=== PATIENT | male | born 1960 | race Caucasian/White ===

== ENCOUNTER 2018-08-06 16:51 | Observation (INO) | payer OTHER, SELFPAY ==
[2018-08-06 16:52] VITALS: BP 160/100; PULSE 64; RESP 16; TEMP 36.8; O2SAT 100; BMI 28.4
--- NOTE | 2018-08-06 17:06 | ED.VISSUMM ---
- ER Visit Summary Date of Service: 08/06/18 Chief Complaint: Bright red rectal bleeding History of Present Illness: The patient is a 58 M history of prior A. fib reportedly one episode 10 years ago which he was cardioverted and has not had it since. Since that time is been on Xarelto. He also has a history of hypertension and insulin-dependent diabetes. Patient is from [facility] he is retired up now in the [place] area and has no primary care physician. He states he has intermittent rectal bleeding from time to time. His last colonoscopy was 10 years ago. States today he had much heavier bleeding. He did take his Xarelto this morning. He denies any hematemesis. He is never had a significant GI bleed before in the past. Physical Examination: Older male no acute distress. Vital signs are stable. Afebrile. Initial blood pressure is 160/100. H EENT exam is unremarkable. Moist neck nontender. No lymphadenopathy. Lungs clear to auscultation bilaterally. Heart regular rhythm rate about 65 no murmur. Abdomen is soft and nontender. Normal bowel sounds no peritoneal signs. He has bright red blood coming from his rectum. On rectal exam I do not feel any obvious mass. I do not see any obvious external hemorrhoids. Extremities he is moving all 4. Nontender. No edema. Neurologically is awake and alert with no focal motor deficits. Test Results: CBC shows a white count of 10. Hemoglobin 12.6. Which is a mild anemia but he has no old labs available for comparison. His chemistries are unremarkable with a normal creatinine and gap. His INR is 2.4. He has been typed and screened. Currently he does not need to be transfused. Emergency Department Course and Treatment: Labs and type and screen. Repeat exam the patient is doing well at 1950 3 PM. He is resting comfortably. He and I discussed treatment options. He is willing to stay in the hospital to be admitted for further evaluation of lower GI bleed of uncertain etiology. Treatment Plan: Hospitalist on page for admission. Disposition: Admission Impression: Acute lower GI bleeding of uncertain etiology Mild anemia Anticoagulated on Xarelto History of prior A. fib This note was generated with Mojiva dictation software. It may contain incorrect words, spelling, and punctuation that were not noted in review of the chart prior to signing ED Disposition - Plan for ED Patient: Referrals: NOT,DEFINED [NON-STAFF] -
--- NOTE | 2018-08-06 17:09 | ED.DCSUM_ITS ---
- ER Visit Summary Date of Service: 08/06/18 Chief Complaint: Bright red rectal bleeding History of Present Illness: The patient is a 58 M history of prior A. fib reportedly one episode 10 years ago which he was cardioverted and has not had it since. Since that time is been on Xarelto. He also has a history of hypertension and insulin-dependent diabetes. Patient is from [facility] he is retired up now in the [place] area and has no primary care physician. He states he has intermittent rectal bleeding from time to time. His last colonoscopy was 10 years ago. States today he had much heavier bleeding. He did take his Xarelto this morning. He denies any hematemesis. He is never had a significant GI bleed before in the past. Physical Examination: Older male no acute distress. Vital signs are stable. Afebrile. Initial blood pressure is 160/100. H EENT exam is unremarkable. Moist neck nontender. No lymphadenopathy. Lungs clear to auscultation bilaterally. Heart regular rhythm rate about 65 no murmur. Abdomen is soft and nontender. Normal bowel sounds no peritoneal signs. He has bright red blood coming from his rectum. On rectal exam I do not feel any obvious mass. I do not see any obvious external hemorrhoids. Extremities he is moving all 4. N ontender. No edema. Neurologically is awake and alert with no focal motor deficits. Test Results: CBC shows a white count of 10. Hemoglobin 12.6. Which is a mild anemia but he has no old labs available for comparison. His chemistries are unremarkable with a normal creatinine and gap. His INR is 2.4. He has been typed and screened. Currently he does not need to be transfused. Emergency Department Course and Treatment: Labs and type and screen. Repeat exam the patient is doing well at 1950 3 PM. He is resting comfortably. He and I discussed treatment options. He is willing to stay in the hospital to be admitted for further evaluation of lower GI bleed of uncertain etiology. Treatment Plan: Hospitalist on page for admission. Disposition: Admission Impression: Acute lower GI bleeding of uncertain etiology Mild anemia Anticoagulated on Xarelto History of prior A. fib This note was generated with FRAMED dictation software. It may contain incorrect words, spelling, and punctuation that were not noted in review of the chart prior to signing ED Disposition - Plan for ED Patient: Referrals: NOT,DEFINED [NON-STAFF] -
[2018-08-06 17:24] LABS: Hematocrit 38.1 % (40-54); Hemoglobin 12.6 g/dl (13.0-16.5); Mean Corp Hgb Conc 33.1 g/gl (32-36); Mean Corpuscular Hgb 28.6 pg (27.0-32.0); Mean Corpuscular Volume 86.4 fL (80-94); Mean Platelet Vol. 9.6 fl (6.2-12.0); Platelet Count 234 K/mm3 (150-450); RBC Distribution Width CV 13.4 % (11.6-14.6); RBC Distribution Width SD 42.5 fl (35.1-43.9); Red Blood Count 4.41 M/mm3 (4.6-6.2); Scan Indicated on CBC? Y/N NO; White Blood Count 10.7 K/mm3 (4.4-11.0)
[2018-08-06 17:31] LABS: International Normalized Ratio 2.4
[2018-08-06 17:32] LABS: Partial Thromboplast Time 35.5 Seconds (24.1-36.2)
[2018-08-06 17:43] LABS: Anion Gap 6 (5-15); BUN 18 mg/dL (7-18); BUN/Creat Ratio 23.3 RATIO (10-20); Calcium,Total 8.6 mg/dL (8.5-10.1); Chloride 106 mmol/L (98-107); Creatinine, Serum 0.77 mg/dL (0.70-1.30); EST Glomerular Filtration Rate 109 mL/min (>60); Est Glom Filt Rate - Afr Amer 132 mL/min (>60); Estimated Creatinine Clearance 121.93 ml/min; Glucose 129 mg/dL (74-106); Potassium 3.9 mmol/L (3.5-5.1); Sodium Level 140 mmol/L (136-145)
[2018-08-06 19:28] VITALS: BP 154/100; PULSE 55; RESP 16; O2SAT 98
--- NOTE | 2018-08-06 19:56 | PCM.HP.STD ---
Problem List (1) Acute blood loss anemia Status: Suspected (2) HTN (hypertension) Status: Chronic (3) Diabetes Status: Chronic History of Present Illness Date of Admission: 08/06/18 Chief Complaint: bright red blood per rectum The patient is a 58 year old M with a significant history of A. fib; hypertension and diabetes who presented because bright red blood per rectum that started on the same day of admission. Patient reported that for the last month he been having intermittent small blood per rectum. However today he had a profuse red blood per rectum that continued for about 30 minutes as well and his jeans and a causing him to go home from work. He reported that he ran out of his Xarelto for about 2 days and restarted his Xarelto on the same day that he bled profusely. His last colonoscopy was about 10 years ago. Emergency department doctor discussed the case with on-call general surgeon for [facility] services. Past Medical History Past Medical History (Chronic Problems): Chronic Problems HTN (hypertension) (Chronic) Diabetes (Chronic) Allergies No Known Allergies Allergy (Verified 08/06/18 16:52) Home Medications: Ambulatory Orders Medication Instructions Recorded Amlodipine [Norvasc] 5 mg PO DAILY 08/06/18 Carvedilol Phosphate [Carvedilol 40 mg PO DAILY 08/06/18 ER] Digoxin 500 mcg PO DINNER 08/06/18 Insulin Degludec [Tresiba 10 unit SQ QHS 08/06/18 Flextouch U-100] Insulin Degludec [Tresiba 20 unit SQ BREAKFAST 08/06/18 Flextouch U-100] Metformin HCl 500 mg PO BID 08/06/18 Metoprolol Succinate [Kapspargo 50 mg PO BID 08/06/18 Sprinkle] Rivaroxaban [Xarelto] 20 mg PO DAILY 08/06/18 Rosuvastatin Calcium [Crestor] 20 mg PO DAILY 08/06/18 Telmisartan/Hydrochlorothiazid 1 each PO DAILY 08/06/18 [Telmisartan-Hctz 80-12.5 mg Tb] Surgical History: no surgical history Lives: With Family Smoking Status: Never smoker Tobacco Use: Non-smoker Alcohol: None - *Family History Maternal Family History: Family History (Last Updated 08/06/18 @ 20:44 by Kai Arrieta MD) Brother Kidney disease Mother Kidney disease Review of Systems Constitutional: Denies: Chills, Fever, Weight Change HEENT: Denies: Head Aches, Sinus Congestion, Sinus Drainage Cardiovascular: Denies: Chest Pain, Palpitations Respiratory: Denies: Cough, Shortness of breath at rest, Sputum production Gastrointestinal: Reports: Diarrhea, Hematochezia. Denies: Abdominal Pain, Nausea, Vomiting Genitourinary: Denies: Dysuria Musculoskeletal: Denies: Joint Pain, Joint Tenderness Skin: Denies: Rash, Wounds Neurological: Denies: Numbness, Tingling, Focal weakness Psychiatric: Denies: Anxiety, Depression, Homicidal Ideations, Suicidal Ideations Hematologic/ Lymphatic: Denies: Easy Bruising, Easy Bleeding VTE Information - Inpt Only VTE Present on Admission: No VTE Mechan Device Prophylaxis: SCD's VTE Pharm Prophylaxis ordered?: No Patient Problems: Active and Suspected Problems Acute blood loss anemia (Suspected) - Physical Exam General: Alert, Oriented x3, Cooperative HEENT: Atraumatic, PERRLA, EOMI, Normocephalic Neck: Supple, No JVD, Negative Carotid Bruits Lungs: Clear to auscultation, Normal air movement Cardiovascular: No murmurs, Bradycardic Abdomen: Bowel Sounds Present, Soft, Non Tender, - - Rectal exam shows no external or internal hemorrhoids. No masses were palpated. Bright red blood was noted. Patient was tender on examination Extremities: No edema, Capillary Refill Less than 3 Seconds Skin: No rashes, No breakdown Musculoskeletal: No Tenderness to Palpation of Joints or Extremities Neurological: Neuro grossly intact Psych/Mental Status: Normal Affect, Appropriate Vital Signs Temp Pulse Resp BP Pulse Ox 98.3 F 55 L 16 154/100 H 98 08/06/18 16:52 08/06/18 19:28 08/06/18 19:28 08/06/18 19:28 08/06/18 19:28 Oxygen Delivery Method Room Air Weight: 103.238 kg Body Mass Index (BMI) 28.4 Laboratory Tests Past 24 Hrs 08/06/18 08/06/18 08/06/18 17:13 17:13 17:13 WBC 10.7 RBC 4.41 L Hgb 12.6 L Hct 38.1 L MCV 86.4 MCH 28.6 MCHC 33.1 RDW 13.4 RDW Differential 42.5 Plt Count 234 MPV 9.6 PT 26.0 H INR 2.4 APTT 35.5 Sodium 140 Potassium 3.9 Chloride 106 Carbon Dioxide 28.0 Anion Gap 6 BUN 18 Creatinine 0.77 Estim Creat Clear Calc 121.93 Est GFR (MDRD) Af Amer 132 Est GFR (MDRD) Non-Af 109 BUN/Creatinine Ratio 23.3 H Glucose 129 H Calcium 8.6 Blood Type Antibody Screen 08/06/18 17:13 WBC RBC Hgb Hct MCV MCH MCHC RDW RDW Differential Plt Count MPV PT INR APTT Sodium Potassium Chloride Carbon Dioxide Anion Gap BUN Creatinine Estim Creat Clear Calc Est GFR (MDRD) Af Amer Est GFR (MDRD) Non-Af BUN/Creatinine Ratio Glucose Calcium Blood Type O NEGATIVE Antibody Screen NEGATIVE Assessment/Plan The patient is a 58 year old M with a significant history of A. fib; hypertension and diabetes who had his last colonoscopy about 10 years ago and on Xarelto for A. fib presenting with bright red blood per rectum and with hemoglobin was 12.6. Probable acute blood loss anemia On admission his hemoglobin was 12.6. No old records to compare with. Bright red blood per history and by physical examination Will check H&H every [address] on normal saline infusion at 100 MLS per hour. Hold home blood pressure. Put on prn hydralazine. Trend blood pressure. Would hold Xarelto. N.p.o. at this time. General surgery consult. Hypertension On admission his blood pressure was not within goal. Also noted the patient has bradycardia with heart rate between 55-60 Hold home blood pressure meds for GI bleed. Prn hydralazine ordered. A. fib Reportedly patient had one-time episode of A. fib many years ago and was cardioverted back to reading. We will continue digoxin We will hold carvedilol and metoprolol. Of note patient is on both metoprolol and carvedilol. He reported that his vocational adviser Dr. Hathaway ([phone]) in [facility] place him on these medications. We will hold Xarelto at this time. Patient declines telemetry monitoring saying that the telemetry sticky pads irritate his skin and he will sign out AMA if he is placed on telemetry on the floor. Diabetes Mellitus On presentation blood glucose was within goal. We will hold home metformin and schedule insulin while n.p.o. Will place on correction scale insulin. Acute diarrhea He reports loose stools for the past 1 months. This could be due to traveler's diarrhea from moving to [place] from here. We will check O and P; and enteric pathogen panel. DVT prophylaxis Would hold Xarelto for A. fib. No chemo prophylaxis because of bleeding SCD ordered. Code Visit OBSV E&M: 71712 Initial observation care L3
[2018-08-06 20:27] VITALS: BP 160/99; PULSE 53; RESP 16; O2SAT 98
[2018-08-06 20:54] VITALS: BMI 27.0; BMI 27.3
[2018-08-06 20:55] VITALS: BP 152/98; PULSE 54; RESP 16; TEMP 37; O2SAT 100
[2018-08-06 21:12] VITALS: O2SAT 98
[2018-08-06 22:01] LABS: Bedside Glucose 105 mg/dL (70-110)
[2018-08-06 22:03] LABS: Hematocrit 36.6 % (40-54); Hemoglobin 12.1 g/dl (13.0-16.5)
--- NOTE | 2018-08-06 22:15 | NURSING ---
When this RN walked into patients room to introduce self and explain POC and do assessment, patient was found in the bathroom finishing up from his shower. Patient was tearful and expressed frustration about still bleeding. Patient embarrassed. This RN gave reassurance and offered assistance. Patient was okay with wearing attends with his underwear overtop to help with the bleeding. Bright red blood present yet no clots. This RN discussed with patient the orders that were placed by the MD. This RN explained to the patient that he was going to be getting a blood draw every 6 hours to check his Hgb, his medication list, IVF that were ordered, NPO status, and a consult was placed for the General Surgeon. The patient asked this RN if he needed the IVF. This RN explained to the patient that he had to right to refuse but also explained that he was to be nothing by mouth at this time and this was going to help with hydration, at this time patient did not want the IVF. Patient also refused his HS lipitor. When this RN went to check the patient blood sugar, patient expressed that he never checks his blood sugar at home, he just takes his insulin and metformin. This RN explained to patient that a stool sample was needed, and when he was able to go to let the staff know. Also went over the reason why the staff were wearing gowns. Will continue patient education and support as needed.
[2018-08-07] MEDS: 0.9% NaCl Peripheral Flush Adult/Peds IV (00:28)
[2018-08-07] MEDS: 0.9% Normal Saline 1,000 ML 100 ML IV ×2 (00:28→10:51)
[2018-08-07 03:21] VITALS: BP 129/87; PULSE 63; RESP 16; TEMP 36.8; O2SAT 96
[2018-08-07 03:36] LABS: Hematocrit 34.7 % (40-54); Hemoglobin 11.6 g/dl (13.0-16.5)
[2018-08-07 06:26] LABS: Bedside Glucose 89 mg/dL (70-110)
[2018-08-07 07:08] VITALS: O2SAT 98
--- NOTE | 2018-08-07 08:09 | PCM.CONS.GEN ---
Problem List (1) Acute blood loss anemia Status: Suspected (2) Bright red blood per rectum Status: Acute Reason for Consult Date of Consultation: 08/07/18 Reason for Consultation: Bright red blood per rectum. Lower GI bleed. History of Present Illness: The patient is a 58 year old M who presents with progressively worsening bright red blood per rectum for 4-5 months. Patient stated for approximately 1 month the bleeding has progressively increased in amount. Patient stated when he had a bowel movement yesterday it was all bright red blood with no stool. He denies hemorrhoids that he is aware of. He denies nausea, vomiting, constipation, abdominal pain. He notes having diarrhea the last few months. He denies fever. He denies travel outside of the country or eating raw foods lately. Patient states his last colonoscopy was approximately 10 years ago. He denies family history of colon cancer. He is on Xarelto for A fib. He noted running out of Xarelto for 2 days and restarted the Xarelto yesterday. 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 He is in [place] to visit family and possibly move here. Patient notes he has been in [place] for 2 months. Patient did see a event sales representative in [place], Dr. Fay. Patient is also a diabetic. He has never had any surgeries previously. He denies previous myocardial infarction, stroke and blood clots. Past Medical History Past Medical History (Chronic Problems): Chronic Problems HTN (hypertension) (Chronic) Diabetes (Chronic) Allergies No Known Allergies Allergy (Verified 08/06/18 16:52) Home Medications: Ambulatory Orders Medication Instructions Recorded Amlodipine [Norvasc] 5 mg PO DAILY 08/06/18 Carvedilol Phosphate [Carvedilol 40 mg PO DAILY 08/06/18 ER] Digoxin 500 mcg PO DINNER 08/06/18 Insulin Degludec [Tresiba 10 unit SQ QHS 08/06/18 Flextouch U-100] Insulin Degludec [Tresiba 20 unit SQ BREAKFAST 08/06/18 Flextouch U-100] Metformin HCl 500 mg PO BID 08/06/18 Metoprolol Succinate [Kapspargo 50 mg PO BID 08/06/18 Sprinkle] Rivaroxaban [Xarelto] 20 mg PO DAILY 08/06/18 Rosuvastatin Calcium [Crestor] 20 mg PO DAILY 08/06/18 Telmisartan/Hydrochlorothiazid 1 each PO DAILY 08/06/18 [Telmisartan-Hctz 80-12.5 mg Tb] Surgical History: no surgical history Lives: With Family Smoking Status: Never smoker Tobacco Use: Non-smoker Alcohol: None - *Family History Maternal Family History: Family History (Last Reviewed 08/07/18 @ 09:26 by Doreen Rodriguez PA-C) Brother Kidney disease Mother Kidney disease Paternal Family History: Family History (Last Reviewed 08/07/18 @ 09:26 by Doreen Rodriguez PA-C) Brother Kidney disease Mother Kidney disease Review of Systems Constitutional: Denies: Chills, Fever, Weight Change HEENT: Denies: Head Aches, Sinus Congestion, Sinus Drainage Cardiovascular: Denies: Chest Pain, Palpitations Respiratory: Denies: Cough, Shortness of breath at rest, Sputum production Gastrointestinal: Reports: Diarrhea, Hematochezia. Denies: Abdominal Pain, Nausea, Vomiting Genitourinary: Denies: Dysuria Musculoskeletal: Denies: Joint Pain, Joint Tenderness Skin: Denies: Rash, Wounds Neurological: Denies: Numbness, Tingling, Focal weakness Psychiatric: Denies: Anxiety, Depression, Homicidal Ideations, Suicidal Ideations Hematologic/ Lymphatic: Reports: Anemia. Denies: Hx of blood clot, Hx of blood transfusion Patient Problems: Active and Suspected Problems Acute blood loss anemia (Suspected) Bright red blood per rectum (Acute) - Physical Exam General: Alert, Oriented x3, Cooperative HEENT: Atraumatic, PERRLA, EOMI, Normocephalic Neck: Supple, No JVD, Negative Carotid Bruits Lungs: Clear to auscultation, Normal air movement Cardiovascular: Regular rate, No murmurs Abdomen: Bowel Sounds Present, Soft, Non Tender, Non-Distended Extremities: No edema, Capillary Refill Less than 3 Seconds Skin: No rashes, No breakdown Musculoskeletal: No Tenderness to Palpation of Joints or Extremities Neurological: Cranial nerves II-XII grossly intact Psych/Mental Status: Normal Affect, Appropriate Vital Signs Temp Pulse Resp BP Pulse Ox 98.2 F 63 16 129/87 H 96 08/07/18 03:21 08/07/18 03:21 08/07/18 03:21 08/07/18 03:21 08/07/18 03:21 Oxygen Delivery Method Room Air Weight: 218 lb 4.122 oz Body Mass Index (BMI) 27.3 Intake and Output for Last 24 Hours 08/05/18 08/06/18 08/07/18 23:59 23:59 23:59 Intake Total 587 / 587 Balance 587 / 587 Laboratory Tests Past 24 Hrs 08/06/18 08/06/18 08/06/18 17:13 17:13 17:13 WBC 10.7 RBC 4.41 L Hgb 12.6 L Hct 38.1 L MCV 86.4 MCH 28.6 MCHC 33.1 RDW 13.4 RDW Differential 42.5 Plt Count 234 MPV 9.6 PT 26.0 H INR 2.4 APTT 35.5 Sodium 140 Potassium 3.9 Chloride 106 Carbon Dioxide 28.0 Anion Gap 6 BUN 18 Creatinine 0.77 Estim Creat Clear Calc 121.93 Est GFR (MDRD) Af Amer 132 Est GFR (MDRD) Non-Af 109 BUN/Creatinine Ratio 23.3 H Glucose 129 H Calcium 8.6 Blood Type Antibody Screen 08/06/18 08/06/18 08/07/18 17:13 21:50 03:14 WBC RBC Hgb 12.1 L 11.6 L Hct 36.6 L 34.7 L MCV MCH MCHC RDW RDW Differential Plt Count MPV PT INR APTT Sodium Potassium Chloride Carbon Dioxide Anion Gap BUN Creatinine Estim Creat Clear Calc Est GFR (MDRD) Af Amer Est GFR (MDRD) Non-Af BUN/Creatinine Ratio Glucose Calcium Blood Type O NEGATIVE Antibody Screen NEGATIVE POC Glucose 08/07/18 08/06/18 06:20 21:51 POC Glucose 89 105 Assessment/Plan All Active Problems Bright red blood per rectum (Acute) I have been consulted in conjunction with Dr. Wayne. Impression: Bright red blood per rectum possible diverticulum versus internal hemorrhoids versus malignancy. Lower GI bleed Plan: I have discussed this patient with Dr. Wayne. Dr. Wayne will plan to perform a colonoscopy with possible biopsies. Procedure details, risks and benefits have been explained to the patient. Patient has had the opportunity to ask and have questions answered. Patient verbally understands and agrees with the plan. We will have patient on clears. NPO after midnight. Janna bowel prep. Colonoscopy scheduled at 10:45 AM tomorrow. Thank you for allowing us to participate in this patient's care. Code Visit Office Visits / Consults: [id number] IP Consult L3
[2018-08-07 09:18] LABS: Hematocrit 36.1 % (40-54); Hemoglobin 11.9 g/dl (13.0-16.5)
[2018-08-07 09:21] VITALS: BP 139/91; PULSE 61; RESP 16; TEMP 37.2; O2SAT 99
[2018-08-07] MEDS: amLODIPine 5 MG Tablet PO (10:53)
[2018-08-07 12:16] LABS: Bedside Glucose 118 mg/dL (70-110)
[2018-08-07 15:02] LABS: Hematocrit 38.3 % (40-54); Hemoglobin 12.5 g/dl (13.0-16.5)
[2018-08-07] MEDS: Electrolyte Solution/Peg's 4000 ML PO (15:13)
[2018-08-07 15:21] VITALS: BP 140/91; PULSE 79; RESP 16; TEMP 37.2; O2SAT 98
[2018-08-07] MEDS: Digoxin 250 MCG Tablet 500 MCG PO (17:17)
[2018-08-07 17:21] LABS: Bedside Glucose 88 mg/dL (70-110)
--- NOTE | 2018-08-07 19:28 | PN_ITS ---
Patient Problems: Active and Suspected Problems Acute blood loss anemia (Suspected) Bright red blood per rectum (Acute) Subjective: Patient was seen and examined today, he will undergo colonoscopy tomorrow morning. Patient's hemoglobin dropped initially from his admission hemoglobin by about a gram, last hemoglobin was virtually identical to his hemoglobin at the time of admission. Patient states that he has only seen a small amount of blood in his stool today, he denies seeing any clots. Patient has no abdominal pain. - Physical Exam General: Alert, Oriented x3, Cooperative, No apparent distress HEENT: Atraumatic, PERRLA, EOMI, Normocephalic Oral: Moist Mucosa Neck: Supple, Trachea Midline, Thyroid Normal Size and Texture Lungs: Clear to auscultation, Normal air movement, No rhonchi, No wheeze, No rales Cardiovascular: Regular rate, Regular Rhythm, Normal S1, Normal S2, No murmurs, No Ectopic Activity, PMI Normal, No rub noted, No Gallop Abdomen: Bowel Sounds Present, Soft, Non Tender, Non-Distended, No hernias noted Extremities: No clubbing, No cyanosis, No edema, Capillary Refill Less than 3 Se conds Skin: No rashes, No breakdown Musculoskeletal: No Tenderness to Palpation of Joints or Extremities Neurological: Cranial nerves II-XII grossly intact, Neuro grossly intact, Sensory exam intact to light touch and pain, Coordination normal Psych/Mental Status: Normal Affect, Appropriate, Alert and oriented to time, place, person, mood and affect Vital Signs Temp Pulse Resp BP Pulse Ox 98.9 F 79 16 140/91 H 98 08/07/18 15:21 08/07/18 15:21 08/07/18 15:21 08/07/18 15:21 08/07/18 15:21 Oxygen Delivery Method Room Air Weight: 99 kg Body Mass Index (BMI) 27.3 Intake and Output for Last 24 Hours 08/05/18 08/06/18 08/07/18 23:59 23:59 23:59 Intake Total 587 / 587 Balance 587 / 587 Laboratory Tests Past 24 Hrs 08/06/18 08/07/18 08/07/18 21:50 03:14 09:05 Hgb 12.1 L 11.6 L 11.9 L Hct 36.6 L 34.7 L 36.1 L 08/07/18 14:55 Hgb 12.5 L Hct 38.3 L POC Glucose 08/07/18 08/07/18 08/07/18 17:02 12:10 06:20 POC Glucose 88 118 H 89 08/06/18 21:51 POC Glucose 105 Medical Necessity - Tobacco Use Smoking Status: Never smoker Tobacco Use: Non-smoker Assessment/Plan All Active Problems Bright red blood per rectum (Acute) #1 bright red rectal bleeding-patient will undergo colonoscopy tomorrow, suspect that the patient may have had a diverticular bleed, polyps and neoplasm are also a possibility. #2 mild blood loss anemia from rectal bleeding-this does not appear to be significant, I will stop the patient's lab as I do not feel the patient is actively bleeding #3 hypertension #4 type 2 diabetes-patient's Triseba will be held, he will continue on sliding scale insulin. #5 chronic anticoagulation with Xarelto-patient stated that he had an episode of atrial fib and underwent cardioversion many years ago, he states he has been on Xarelto for approximately 10 years. Patient's last dose of Xarelto was yesterday afternoon. Code Visit OBSV E&M: 48679 Subsequent observation care L3
[2018-08-07 21:30] VITALS: BP 145/85; PULSE 61; RESP 16; TEMP 36.7; O2SAT 100
[2018-08-07 23:31] LABS: Bedside Glucose 95 mg/dL (70-110)
[2018-08-08 06:00] VITALS: BP 134/90; PULSE 55; RESP 16; TEMP 36.8; O2SAT 97
--- NOTE | 2018-08-08 06:00 | EKG12_ITS ---
Test Reason : AM EKG Blood Pressure : / mmHG Vent. Rate : 058 BPM Atrial Rate : 058 BPM P-R Int : 150 ms QRS Dur : 082 ms QT Int : 436 ms P-R-T Axes : -15 -25 076 degrees QTc Int : 428 ms Sinus bradycardia Low voltage QRS Septal infarct , age undetermined Abnormal ECG Confirmed by RICARDO JUAREZ, ZUHAIR ([id number]), industrial editor MIKE AJ ([id number]) on 08/14/2018 10:40:12 AM Referred By: Kai Arrieta Confirmed By:ZUHAIR SILVA MD
[2018-08-08 06:16] LABS: Bedside Glucose 91 mg/dL (70-110)
--- NOTE | 2018-08-08 06:16 | NURSING ---
Patient did report to this RN this am some rectal bleeding, stated no clots were present. Not observed this am.
[2018-08-08 07:32] VITALS: O2SAT 96
[2018-08-08 08:06] LABS: Digoxin Level 0.62 ng/mL (0.80-2.00)
[2018-08-08 09:13] VITALS: BP 123/70; BP 134/90; PULSE 76; RESP 16; TEMP 36.9; O2SAT 98
--- NOTE | 2018-08-08 09:15 | OP.ENDO_ITS ---
08/08/2018 No Primary Care Physician Re : Colonoscopy procedure for Brian Read [facility] Care Physician This procedure was performed on July. My impressions and recommendations are as follows: Impressions : - Friable (with contact bleeding) mucosa at the anus. - The examination was otherwise normal on direct and retroflexion views. - No specimens collected. Recommendations : - Return patient to hospital [facility] for observation. - Do not resume blood thinners. - Advance diet as tolerated. - OK for discharge. - Repeat colonoscopy in 10 years for screening purposes. - Continue present medications. My findings are described in the full procedure note, which is enclosed. If I can be of further assistance, please feel free to contact me at Doctor phone number(s): , Work: . Sincerely, Geronimo Wayne MD 08/08/2018 9:14:30 AM This report has been signed electronically.
--- NOTE | 2018-08-08 09:17 | PN_ITS ---
Progress Note I performed a colonoscopy in the patient today. There is no active bleeding or stigmata of bleeding in the colon. The patient did have friable anal canal with possible dysplasia. The patient may be started on a regular diet and discharged home with no anticoagulation. I will have my office schedule an outpatient exam under anesthesia with biopsy of the anal canal. Geronimo Wayne MD Pager: [facility] [address] [place] [address], [address] [place] [address] Office:
[2018-08-08 09:20] VITALS: BP 134/90; BP 97/75; PULSE 63; RESP 16; O2SAT 98
[2018-08-08 09:25] VITALS: BP 115/66; BP 134/90; PULSE 65; RESP 16; O2SAT 97
[2018-08-08 09:41] VITALS: BP 134/90; BP 134/92; PULSE 65; RESP 16; TEMP 36.8; O2SAT 97
--- NOTE | 2018-08-08 11:26 | DCINST_ITS ---
- Discharge Diagnoses Current Active Problems: Current Active and Chronic Problems HTN (hypertension) (Chronic) Diabetes (Chronic) Bright red blood per rectum (Acute) You will use the following diet at home:: Calorie/Carbohydrate Controlled (specify 1200, 1400, etc) - 1800 dharmesh Your food should be the consistency of: Regular Your liquids should be the consistency of: Regular/Thin Discharge Activity: Return to Normal Activity Weight Bearing Status: Full weight bearing Allergies/Adverse Reactions: Allergies No Known Allergies Allergy (Verified 08/06/18 16:52) Medications to take at Discharge Amlodipine [Norvasc] 5 mg PO DAILY 08/06/18 Insulin Degludec [Tresiba Flextouch U-100] 10 unit SQ QHS 08/06/18 Insulin Degludec [Tresiba Flextouch U-100] 20 unit SQ BREAKFAST 08/06/18 Metformin HCl 500 mg PO BID 08/06/18 Rivaroxaban [Xarelto] 20 mg PO DAILY 08/06/18 Rosuvastatin Calcium [Crestor] 20 mg PO DAILY 08/06/18 Telmisartan/Hydrochlorothiazid [Telmisartan-Hctz 80-12.5 mg Tb] 1 each PO DAILY 08/06/18 Digoxin 250 mcg PO DINNER 08/07/18 Carvedilol Phosphate [Carvedilol ER] 80 mg PO DAILY #60 cpmp.24hr 08/08/18 The following prescriptions were given: Carvedilol Phosphate [Carvedilol ER] 80 mg PO DAILY #60 cpmp.24hr Primary Care Physician: NOT,DEFINED [NON-STAFF] - Please follow up with your Primary Care Physician in: in 2-3 weeks Test Results: Test results from this visit will be discussed in further detail at your follow- up appointment, if applicable. Please Follow Up With: Geronimo Wayne MD When: as directed
[2018-08-08 12:16] LABS: Hemoglobin A1c 5.9 % (4.2-6.3)
--- NOTE | 2018-08-11 18:52 | DS.PCM_ITS ---
Discharge Date and Diagnosis Date of Admission: 08/06/18 Date of Discharge: 08/08/18 - Primary Discharge Diagnosis #1 bright red rectal bleeding-secondary to proctitis-etiology unclear #2 mild blood loss anemia from rectal bleeding-this does not appear to be significant #3 hypertension #4 type 2 diabetes #5 chronic anticoagulation with Xarelto - Secondary Discharge Diagnosis Chronic Problems HTN (hypertension) (Chronic) Diabetes (Chronic) Hospital Course and Treatment Operations: None Procedures: Colonoscopy Summary of Care Provided: The patient is a 58 year old M who was seen in the emergency room at [facility] with a chief complaint of bright red rectal bleeding. Evaluation in the emergency room included labs which showed a hemoglobin of 12.6, chemistries were unremarkable, INR was 2.4. Patient was placed and observation status on MedSurg 2 and seen by general surgery. Follow-up labs were obtained and the hemoglobin initially dropped a slight amount but then came back up to his baseline. Patient underwent a colonoscopy which showed friable rectal mucosa, no evidence of any diverticulosis, colitis, polyps, or colon lesions was noted. On 08/08/18, I examined the patient: Physical exam: On examination he appeared in good health and spirits. Vital signs as documented. Skin warm and dry and without overt rashes. Neck without JVD. Lungs clear. Heart exam notable for regular rhythm, normal sounds and absence of murmurs, rubs or gallops. Abdomen unremarkable and without evidence of organomegaly, masses, or abdominal aortic enlargement. Extremities nonedematous. Neuro: Cranial nerves II through XII are grossly intact, no focal motor deficits were noted, sensation to light touch and pinprick intact. Psych: Patient is alert and oriented x3, he does not appear anxious or depressed In talking with the patient, patient was a poor informant, he did not know exactly why he was placed on Xarelto by his physician in [place], patient had moved back to [place] from [place] recently. Recommended a PCP in the area for the patient to follow-up with. Patient will be following up with general surgery as an outpatient per general surgery notes. - Physical Exam Vital Signs Temp Pulse Resp BP Pulse Ox 98.2 F 65 16 134/92 H 97 08/08/18 09:41 08/08/18 09:41 08/08/18 09:41 08/08/18 09:41 08/08/18 09:41 Oxygen Delivery Method Room Air Weight: 99 kg Body Mass Index (BMI) 27.3 Discharge Activity: Return to Normal Activity Weight Bearing Status: Full weight bearing Home Medications: Medications to take at Discharge Amlodipine [Norvasc] 5 mg PO DAILY 08/06/18 Insulin Degludec [Tresiba Flextouch U-100] 10 unit SQ QHS 08/06/18 Insulin Degludec [Tresiba Flextouch U-100] 20 unit SQ BREAKFAST 08/06/18 Metformin HCl 500 mg PO BID 08/06/18 Rivaroxaban [Xarelto] 20 mg PO DAILY 08/06/18 Rosuvastatin Calcium [Crestor] 20 mg PO DAILY 08/06/18 Telmisartan/Hydrochlorothiazid [Telmisartan-Hctz 80-12.5 mg Tb] 1 each PO DAILY 08/06/18 Digoxin 250 mcg PO DINNER 08/07/18 Carvedilol Phosphate [Carvedilol ER] 80 mg PO DAILY #60 cpmp.24hr 08/08/18 Following Prescrptions Were Given to Patient: Carvedilol Phosphate [Carvedilol ER] 80 mg PO DAILY #60 cpmp.24hr Primary Care Physician: NOT,DEFINED [NON-STAFF] - Please follow up with your Primary Care Physician in: in 2-3 weeks Please Follow Up With: Geronimo Wayne MD When: as directed Disposition: Home Minutes spent on discharge:: 30 Patient Condition:: Stable Medical Necessity - Tobacco Use Smoking Status: Never smoker Tobacco Use: Non-smoker Meaningful Use Info Meaningful Use Diagnoses (Choose all that apply): None applicable Code Visit OBSV E&M: 39970 Observation care discharge
== END 2018-08-08 11:40 | disposition home or self-care (01) ==
LOC: ED 17:20 → MS2 20:20
PROVIDERS: Anesthesiology; Surgery; Admitting Provider Hospitalist; Emergency Provider Emergency Medicine; Referring Provider Hospitalist; Visit Provider Internal Medicine
PROC: 0DJD8ZZ Inspection of Lower Intestinal Tract, Via Natural or Artificial Opening Endoscopic (ICD-10-PCS; CPT 45378; principal; 2018-08-08 10:40)
DX: K62.89 Other specified diseases of anus and rectum (principal); I10 Essential (primary) hypertension; E11.9 Type 2 diabetes mellitus without complications; I48.91 Unspecified atrial fibrillation; D62 Acute posthemorrhagic anemia; Z79.4 Long term (current) use of insulin; Z79.01 Long term (current) use of anticoagulants; Z79.899 Other long term (current) drug therapy; E78.00 Pure hypercholesterolemia, unspecified
CPT/HCPCS: 45378; 36415; 80048; 80162; 82962; 83036; 85014; 85018; 85027; 85610; 85730; 86850; 86900; 87177; 87209; 87506; 93005; 96360; 96361; 99218; 99285; J7030; A4216; G0378

== ENCOUNTER 2018-08-29 06:43 | Day surgery (SDC) | payer OTHER, SELFPAY ==
[2018-08-06 20:54] VITALS: BMI 27.3
[2018-08-29 06:54] VITALS: BP 128/88; PULSE 68; RESP 16; TEMP 36.6; O2SAT 98; BMI 27.5
[2018-08-29 07:16] LABS: Bedside Glucose 97 mg/dL (70-110)
--- NOTE | 2018-08-29 08:40 | HEM_PTH ---
PATIENT: MORE ALLEN LOC: [facility] U#:[id number] AGE/SX: 58/M ROOM: RE08/29/[address]: Dr. Geronimo Wayne MD : 1960 BED: DIS: 08/29/2018 SPEC #: [id number] RECD: 08/29/18 11:58 STATUS: AJAY MADELAINE #: [id number] ARON: 08/29/18 08:[address]: Geronimo Wayne DEPT: SURGICAL PATHOLOGY RECD BY: Talib Anglin ENTERED: 08/29/18 13:21 SP TYPE: HEMORRHOID OTHR DR: No Primary Care Phys Tissues: HEMORRHOIDS Procedures: Surgery Specimen Level III HEADER OPERATION: Exam under anesthesia, hemorrhoidectomy PRE-OP DIAGNOSIS: Hemorrhoid, GI bleeding TISSUE SUBMITTED: Hemorrhoid MICROSCOPIC DIAGNOSIS Hemorrhoid, hemorrhoidectomy: Submucosal vascular ectasia and thrombosis consistent with hemorrhoid. AM:maritza 08/30/18 MICROSCOPIC DESCRIPTION Slides are reviewed. GROSS DESCRIPTION Received in fixative is one container labeled with the patient's name and designated hemorrhoids. The specimen consists of an irregular fragment of hemorrhagic red-heredia soft tissue measuring 3 x 1.5 x 1.2 cm. The specimen is bisected and totally submitted in one cassette. / AM:maritza 08/29/18 TC:5 CPT: 38050
[2018-08-29] MEDS: Cefazolin 2 GM in 0.9% Normal Saline 100 ML IV (08:52)
[2018-08-29] MEDS: Lubricating Jelly 60 GM Tube 30 GM TOPICAL (09:00)
[2018-08-29] MEDS: Bupivacaine Mpf 0.5% 30 ML VIAL (09:25)
[2018-08-29] MEDS: Dibucaine 30 GM Tube 1 APPLIC (09:27)
--- NOTE | 2018-08-29 09:39 | DCINST_ITS ---
Discharge Diet: No Restrictions Discharge Activity: Return to Normal Activity, May Not Drive - while you are taking narcotic pain medications. Do not drive, work with heavy equipment or sign legal documents for 24 hours after your surgery. Additional Activity Instructions:: Be aware that pain medications may cause nausea. You should typically eat light foods as you take your pain medications. Pain medications may also cause constipation, if you have difficulty with this please discuss with your doctor. Call your doctor if your incision/area has: Continuous Slow Oozing, Sudden Increased Bleeding, Increased Pain/ Swelling, Increased Redness, Foul Smelling Discharge, Swelling at the incision site Call your doctor if you observe: Fever of 101 or Higher Additional Dressing/Incision Instructions:: Leave the operative bandage on for 2 days. If a local anesthetic plug was placed in the anal area, try not to expel for 24-[address] dibucaine ointment on the perianal area as needed. Sitz baths twice daily and after bowel movements. Additional Instructions: Resume blood thinners Sunday Allergies/Adverse Reactions: Allergies No Known Allergies Allergy (Verified 08/26/18 11:41) Medications to take at Discharge Amlodipine [Norvasc] 5 mg PO DAILY 08/06/18 Insulin Degludec [Tresiba Flextouch U-100] 10 unit SQ QHS 08/06/18 Insulin Degludec [Tresiba Flextouch U-100] 20 unit SQ BREAKFAST 08/06/18 Metformin HCl 500 mg PO BID 08/06/18 Rivaroxaban [Xarelto] 20 mg PO DAILY 08/06/18 Rosuvastatin Calcium [Crestor] 20 mg PO DAILY 08/06/18 Telmisartan/Hydrochlorothiazid [Telmisartan-Hctz 80-12.5 mg Tb] 1 each PO DAILY 08/06/18 Digoxin 250 mcg PO DINNER 08/07/18 Carvedilol Phosphate [Carvedilol ER] 80 mg PO DAILY #60 cpmp.24hr 08/08/18 Docusate Sodium [Colace] 100 mg PO BID #40 capsule 08/29/18 Oxycodone HCl/Acetaminophen [Percocet 5/325] 1 - 2 tablet PO Q4H PRN PRN 7 Days #40 tablet 08/29/18 The following prescriptions were given: Oxycodone HCl/Acetaminophen [Percocet 5/325] 1 - 2 tablet PO Q4H PRN PRN 7 Days #40 tablet PRN Reason: Pain Docusate Sodium [Colace] 100 mg PO BID #40 capsule Primary Care Physician: Care Physician,No Primary [Primary Care Provider] - Test Results: Test results from this visit will be discussed in further detail at your follow- up appointment, if applicable. Please Follow Up With: Geronimo Wayne MD When: Please call to schedule 2 week follow up appointment. [phone]
[2018-08-29 09:41] VITALS: BP 119/82; BP 128/88; PULSE 58; RESP 14; TEMP 36.1; O2SAT 94
[2018-08-29 09:45] VITALS: BP 114/83; BP 128/88; PULSE 58; RESP 16; O2SAT 96
[2018-08-29 10:00] VITALS: BP 114/79; BP 128/88; PULSE 55; RESP 16; O2SAT 98
[2018-08-29 10:10] VITALS: BP 116/84; BP 128/88; PULSE 53; RESP 16; TEMP 36.5; O2SAT 96
[2018-08-29 10:21] LABS: Bedside Glucose 116 mg/dL (70-110)
[2018-08-29 11:15] VITALS: BP 122/78; BP 128/88; PULSE 51; RESP 16; TEMP 36.3; O2SAT 99
--- NOTE | 2018-08-30 08:46 | PCM.OPRPT ---
Problem List (1) Bright red blood per rectum Status: Acute Report of Operation Date of Procedure: 08/30/18 Pre-Operative Diagnosis: Bright red blood per rectum. Possible dysplasia Post-Operative Diagnosis: Same Surgery/Procedure Performed:: Exam under anesthesia with hemorrhoid ectomy Specimen's removed: Posterior hemorrhoid Description of Procedure: Patient was brought back to the operating room and general anesthesia was induced. The patient was then placed in a prone jackknife position. The buttocks were taped apart. After prepping a lubricated finger was used to perform a rectal exam and then a retractor was placed into the rectum. The patient only had one posterior hemorrhoid with the dysplastic changes of the skin. A 3-0 chromic suture was placed at the base of the hemorrhoid and then the hemorrhoid was sharply excised. Next the chromic suture was used in a running locked fashion to close the mucosa leaving the distal most and open partly for drainage. There is good hemostasis. The hemorrhoid was sent for pathology. Marcaine was used for a local block. A Gelfoam pad was rolled up and coated with dibucaine and placed into the rectum. Patient tolerated the procedure well and was brought to PACU in stable condition.
== END 2018-08-29 11:33 | disposition home or self-care (01) ==
LOC: SDC 06:44 → AC 06:44
PROVIDERS: Referring Provider Surgery; Visit Provider Surgery
PROC: (CPT 46255; principal; 2018-08-29 08:25)
DX: K64.8 Other hemorrhoids (principal); E11.9 Type 2 diabetes mellitus without complications; Z79.84 Long term (current) use of oral hypoglycemic drugs; E78.00 Pure hypercholesterolemia, unspecified; Z79.899 Other long term (current) drug therapy; I10 Essential (primary) hypertension; I48.91 Unspecified atrial fibrillation
CPT/HCPCS: 00902; 46255; 82962; 88304; J7120; J2405

== ENCOUNTER → 2019-11-17 10:58 | Outpatient (CLI) | payer OTHER, SELFPAY ==
[2019-11-17 10:23] VITALS: BMI 33.3
[2019-11-17 12:29] LABS: AST(SGOT) 22 U/L (15-37); Alanine Aminotransfer ALT/SGPT 42 U/L (16-61); Albumin, Serum 3.6 g/dL (3.2-5.0); Alkaline Phosphatase 114 U/L (45-117); Cholesterol 131 mg/dL (200); Globulin 4.3 g/dL (2.2-4.2); High Density Lipoprotein 37 mg/dL; Protein, Total 7.9 g/dL (6.4-8.2); Triglycerides 96 mg/dL; Very Low Density Lipoprotein 19 mg/dL (5-40)
== END ==
LOC: LAB 11:02
PROVIDERS: Referring Provider Nurse Practitioner Family; Visit Provider Nurse Practitioner Family
DX: E78.2 Mixed hyperlipidemia (principal)
CPT/HCPCS: 36415; 80061; 80076

== ENCOUNTER 2019-12-01 09:43 | Emergency (ER) | payer OTHER, SELFPAY ==
[2019-11-17 10:23] VITALS: BMI 33.3
[2019-12-01 09:44] VITALS: BP 162/124; PULSE 70; RESP 16; TEMP 36.2; O2SAT 98; BMI 33.4
--- NOTE | 2019-12-01 10:12 | ED.VIS.GEN ---
History of Present Illness Chief Complaint: Abscess Narrative: Patient presenting for evaluation due to an abscess or cyst. Patient reports that he has had a long time bump over his left upper back that recently has become inflamed and larger in size and more painful. Patient denies any fevers or constitutional symptoms. Pain is mild worse with palpation. Patient denies any history of immunocompromise, easy bruising or bleeding. Review of systems otherwise negative. Past Medical History - Allergies and Home Meds Allergies/Adverse Reactions: Allergies No Known Allergies Allergy (Verified 12/01/19 09:46) Primary Care Physician: Care Physician,No Primary [Primary Care Provider] - Prior records reviewed: Yes Past Medical History: None Surgical History: no surgical history Smoking Status: Never smoker Review of Systems General: Denies: Chills, Fever, Sweats Eyes: Denies: Visual changes - bilaterally, Diplopia ENT: Denies: Rhinorrhea, Sore throat Cardiovascular: Denies: Chest pain, Palpitations Respiratory: Denies: Dyspnea, Cough, Dyspnea on exertion Gastrointestinal: Denies: Abdominal pain, Nausea, Vomiting, Diarrhea, Melena, Hematochezia Genitourinary: Denies: Dysuria, Hematuria, Frequency Musculoskeletal: Denies: Back pain, Extremity Pain Skin: Reports: Abscess. Denies: Rash, Wounds Neurological: Denies: Headache, Weakness, Numbness Psych: Denies: Depression Endocrine: Denies: Polyuria, Polydipsia Hematologic: Denies: Easy bruising, Easy bleeding Physical Exam Vital Signs/Narrative: Vital Signs Temp Pulse Resp BP Pulse Ox 12/01/19 09:44 97.1 F L 70 16 162/124 H 98 Inital Vital Signs reviewed: Yes General: Well nourished, Well developed Head: Normocephalic, Atraumatic Eyes: EOMI ENT: Moist mucous membranes Cardiovascular: Regular rate, Regular rhythm Respiratory: No distress Back: - - Examination of the patient's left back shows over the left trapezius area just lateral to the patient's spine a large area of fluctuance and induration measuring probably about 6 cm across. Tender to palpation. Extremities: Nontender Neurological: Alert, Oriented x3 Psychological: Normal affect Diagnostic/Tx/Re-eval - Medical Decision Making Patient presented secondary to what appears to be a sebaceous cyst. It was incised and drained as noted in the procedure note and the left open. Dressing was placed by nursing staff. Patient will follow-up with general surgery if there is reaccumulation. Procedures Procedure(s): Area was prepped with Betadine, and then was allowed to dry. Area was then anesthetized via a field block using lidocaine with epinephrine, total of 8 cc. Area of greatest fluctuance was then incised with a 15 blade scalpel, and copious amounts of chunky purulent material were expressed. Area was probed and deloculated with hemostats, was irrigated with saline, and then was left open. Patient tolerated this well. ED Disposition - Plan for ED Patient: Disposition: Psychiatric Hospital or Unit Diagnosis: Sebaceous cyst Instructions: ED Abscess Incision And Drainage Referrals: Geronimo Wayne MD [STAFF PHYSICIAN] - As Needed
== END 2019-12-01 10:24 | disposition home or self-care (01) ==
LOC: ED 10:18
PROVIDERS: Emergency Provider Emergency Medicine
DX: L72.3 Sebaceous cyst (principal)
CPT/HCPCS: 10060; 99282

== ENCOUNTER → 2020-10-25 09:50 | Outpatient (CLI) | payer OTHER, SELFPAY ==
[2020-10-25 09:10] VITALS: BMI 33.4
[2020-10-25 10:38] LABS: Absolute Lymphocyte Count 2.02 X10^3/uL (0.83-4.51); Absolute Neutrophil Count 8.8 X10^3/uL (2.0-7.7); Basophil# 0.08 X10^3/uL; Basophil% 0.7 % (0-1); Eosinophil# 0.27 X10^3/uL; Eosinophils% 2.3 % (0-5); Hematocrit 52.3 % (40-54); Hemoglobin 17.1 g/dL (13.0-16.5); Lymphocyte # 2.02 X10^3/ul (0.83-4.51); Mean Corp Hgb Conc 32.7 g/dL (32-36); Mean Corpuscular Hgb 28.5 pg (27.0-32.0); Mean Corpuscular Volume 87.3 fL (80-94); Mean Platelet Vol. 10.4 fl (6.2-12.0); Monocyte# 0.66 X10^3/uL; Monocyte% 5.6 % (0-10); NRBC Flagged by Analyzer 0 % (0-5); Neutrophil # 8.75 X10^3/uL (2.7-7.7); Neutrophil % 73.8 % (47-70); Platelet Count 216 K/mm3 (150-450); RBC Distribution Width CV 12.6 % (11.6-14.6); Red Blood Count 5.99 M/mm3 (4.6-6.2); White Blood Count 11.9 K/mm3 (4.4-11.0)
[2020-10-25 11:13] LABS: ALB/GLOB Ratio 0.9 RATIO (0.9-2.4); AST(SGOT) 16 U/L (15-37); Alanine Aminotransfer ALT/SGPT 34 U/L (16-61); Albumin, Serum 3.8 g/dL (3.2-5.0); Alkaline Phosphatase 122 U/L (45-117); Anion Gap 6 (5-15); BUN 13 mg/dL (7-18); BUN/Creat Ratio 12.1 RATIO (10-20); Calcium,Total 9.3 mg/dL (8.5-10.1); Chloride 101 mmol/L (98-107); Cholesterol 145 mg/dL (200); Creatinine, Serum 1.07 mg/dL (0.70-1.30); EST Glomerular Filtration Rate 74 mL/min (>60); Est Glom Filt Rate - Afr Amer 90 mL/min (>60); Globulin 4.4 g/dL (2.2-4.2); Glucose 407 mg/dL (74-106); High Density Lipoprotein 41 mg/dL; Magnesium 1.9 mg/dL (1.6-2.6); Potassium 4.3 mmol/L (3.5-5.1); Protein, Total 8.2 g/dL (6.4-8.2); Sodium Level 133 mmol/L (136-145); Thyroid Stim Hormone (TSH) 1.22 uIU/mL (0.358-3.74); Triglycerides 115 mg/dL; Very Low Density Lipoprotein 23 mg/dL (5-40)
[2020-10-25 11:25] LABS: Digoxin Level 0.38 ng/mL (0.80-2.00)
== END ==
LOC: LAB 09:53
PROVIDERS: Referring Provider Internal Medicine Cardiovascular Disease; Visit Provider Internal Medicine Cardiovascular Disease
DX: E78.2 Mixed hyperlipidemia (principal); I10 Essential (primary) hypertension; I43 Cardiomyopathy in diseases classified elsewhere; I48.0 Paroxysmal atrial fibrillation
CPT/HCPCS: 36415; 80053; 80061; 80162; 82248; 83735; 84436; 84443; 85025

== ENCOUNTER → 2022-11-29 | Outpatient (CLI) | payer OTHER, SELFPAY ==
[2022-11-29 09:01] LABS: AST(SGOT) 16 U/L (15-37); Alanine Aminotransfer ALT/SGPT 27 U/L (16-61); Albumin, Serum 3.6 g/dL (3.2-5.0); Alkaline Phosphatase 89 U/L (45-117); Bilirubin, Direct 0.38 mg/dL (0.00-0.30); Cholesterol 116 mg/dL (200); Globulin 4.1 g/dL (2.2-4.2); High Density Lipoprotein 38 mg/dL; Protein, Total 7.7 g/dL (6.4-8.2); Triglycerides 105 mg/dL; Very Low Density Lipoprotein 21 mg/dL (5-40)
== END | disposition home or self-care (01) ==
LOC: LAB 08:00
PROVIDERS: Referring Provider Nurse Practitioner Gerontology; Visit Provider Nurse Practitioner Gerontology
DX: E78.2 Mixed hyperlipidemia (principal)
CPT/HCPCS: 36415; 80061; 80076

== ENCOUNTER 2024-12-20 10:40 | Emergency (ER) | payer MEDICARE, OTHER, SELFPAY ==
[2024-12-20 10:40] VITALS: BP 150/105; PULSE 75; RESP 14; TEMP 36.9; O2SAT 98; BMI 29.2
[2024-12-20] MEDS: Lidocaine 1% /Epi 1:100 (20ml) 20 ML Vial 10 ML INFILT (12:17)
[2024-12-20 13:15] VITALS: BP 154/100; PULSE 79; RESP 16; TEMP 36.6; O2SAT 100
== END 2024-12-20 13:25 | disposition home or self-care (01) ==
PROVIDERS: Emergency Provider Emergency Medicine; Visit Provider Emergency Medicine
DX: L02.31 Cutaneous abscess of buttock (principal); I48.0 Paroxysmal atrial fibrillation; I42.9 Cardiomyopathy, unspecified; E11.9 Type 2 diabetes mellitus without complications; I10 Essential (primary) hypertension; E78.2 Mixed hyperlipidemia; Z79.01 Long term (current) use of anticoagulants; Z79.899 Other long term (current) drug therapy
CPT/HCPCS: 10060; 99283

== ENCOUNTER 2025-01-14 10:48 | Emergency (ER) | payer MEDICARE, OTHER, SELFPAY ==
[2025-01-14 10:48] VITALS: BP 183/125; PULSE 134; RESP 22; TEMP 36.3; O2SAT 98; BMI 29.8
--- NOTE | 2025-01-14 11:23 | CT_ITS ---
PROCEDURE: CHEST WITHOUT CONTRAST 01/14/2025 REASON FOR EXAM: LEFT LATERAL RIB PAIN TECHNIQUE: Chest CT without contrast. Coronal and Sagittal reconstruction series were provided. One or more dose reduction techniques were used (e.g., Automated exposure control, adjustment of the mA and/or kV according to patient size, use of iterative reconstruction technique RADIATION DOSE SUMMARY: CTDlvol: 15.64 mGy DLP: 664.23 mGycm COMPARISON: None FINDINGS: Hardware: None Lymph nodes: Small benign-appearing bilateral axillary lymph nodes. Small benign-appearing mediastinal lymph nodes. Heart and Vasculature: Atherosclerotic calcification of the aortic arch. Coronary Artery Calcifications: Present Lungs and Airways: Tiny left pleural effusion with the bibasilar linear atelectasis more prominent on the left side superimposed on scarring. Pleura: Small bilateral effusions slightly more prominent on the left side. Upper Abdomen: Unremarkable Bones: Nondisplaced fracture of the left 7th and 8th rib fractures posteriorly. Degenerative changes of the thoracic spine. CT/Chest without Contrast IMPRESSION: Coronary artery calcification (CAC) is is present Nondisplaced fractures of the posterior left 7th and 8th ribs with a small bila teral effusions slightly worse on the left side with bibasilar atelectasis superimposed on linear scarring. Reading Location: [facility]
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
[2025-01-14 12:48] VITALS: BP 158/76; PULSE 89; RESP 18; O2SAT 98
[2025-01-14 13:16] VITALS: BP 148/109; PULSE 75; RESP 18; TEMP 36.8; O2SAT 98
--- NOTE | 2025-01-14 13:25 | ED.RN ---
PT REFUSED INCENTIVE SPIROMETER. THIS NURSE WENT IN DEPTH ON PT EDUCATION AND WHY WE PRACTICE THIS EXERCISE. PT SAID I WILL DO MY OWN BREATHING. THIS NURSE ADVISED HIM THE TOOL HELPS TO MEET A GOAL TO MAKE SURE WE ARE BREATHING DEEP ENOUGH, ALSO! PT STILL REFUSED THE INCENTIVE SPIROMETER.
== END 2025-01-14 13:27 | disposition home or self-care (01) ==
PROVIDERS: Emergency Provider Surgery; Visit Provider Surgery
DX: S22.42XA Multiple fractures of ribs, left side, initial encounter for closed fracture (principal); I48.0 Paroxysmal atrial fibrillation; E11.9 Type 2 diabetes mellitus without complications; I10 Essential (primary) hypertension; V28.49XA Other motorcycle driver injured in noncollision transport accident in traffic accident, initial encounter; Z79.899 Other long term (current) drug therapy; E78.2 Mixed hyperlipidemia; Z79.01 Long term (current) use of anticoagulants
CPT/HCPCS: 71250; 96374; 96375; 99284; A4216; J2405